=== PATIENT | female | born 1965 | race Caucasian/White ===

== ENCOUNTER 2019-03-07 15:32 | Emergency (ER) | payer BC, OTHER ==
[2019-03-07] MEDS ORDERED: Ketorolac 60 MG/2 ML SDV IM ONE (17:15)
[2019-03-07] MEDS ORDERED: methylPREDNISolone Sodium Succinate 125 MG/2 ML SDV IM ONE (17:15)
--- NOTE | 2019-03-07 17:18 | EDM.PDOC ---
ED HPI GENERAL MEDICAL PROBLEM - General Chief Complaint: Upper Extremity Injury/Pain Stated Complaint: SHARP PAIN IN LFT ARM Time Seen by Provider: 03/07/19 17:10 Source of Information: Reports: Patient History Limitations: Reports: No Limitations - History of Present Illness INITIAL COMMENTS - FREE TEXT/NARRATIVE: HISTORY AND PHYSICAL: History of present illness: Patient is a 53-year-old female who presents to the emergency room with complaints of left arm pain. She states yesterday she noticed some pain to the left bicep tricep area which felt like a muscle cramp. She states she would palpate the area and it felt firm to touch. Intermittently she would get pain that would go from the left sternocleidal mastoid area down her arm and caused some numbness and tingling to her fingertips. She denies any injury, trauma or falls. Denies any previous history of neck or back pain/injury. Her skin is intact without any erythema, soft tissue swelling or pain. Besides the bicep cramping and intermittent tingling to her fingers she offers no other systemic complaints. Neurologically intact. Review of systems: As per history of present illness and below otherwise all systems reviewed and negative. Past medical history: As per history of present illness and as reviewed below otherwise noncontributory. Surgical history: As per history of present illness and as reviewed below otherwise noncontributory. Social history: See social history for further information Family history: As per history of present illness and as reviewed below otherwise noncontributory. Physical exam: General: Well-developed and well-nourished 53-year-old female. Alert and oriented. Nontoxic appearing and in no acute distress. HEENT: Atraumatic, normocephalic, pupils equal and reactive bilaterally, negative for conjunctival pallor or scleral icterus, mucous membranes moist, TMs normal bilaterally, throat clear, neck supple, nontender, trachea midline. No drooling or trismus noted. No meningeal signs. No hot potato voice noted. Lungs: Clear to auscultation, breath sounds equal bilaterally, chest nontender. Heart: S1S2, regular rate and rhythm without overt murmur Abdomen: Soft, nondistended, nontender. Skin: Intact, warm, dry. No lesions or rashes noted. Extremities: Atraumatic, moves all extremities per self without difficulty or deficits, strong radial pulse. Cap refill less than 3 seconds. Skin intact. Full ROM of head/neck, left shoulder, elbow, and wrist. Neurovascular unremarkable. Neuro: Awake, alert, oriented. Cranial nerves II through XII unremarkable. Cerebellum unremarkable. Motor and sensory unremarkable throughout. Exam nonfocal. Notes: Physical examination is within normal limits. It sounds like she may have some form of nerve impingement versus muscle cramping. She states that she has not done any vigorous or strenuous activity out of normal. We did discuss the need for follow-up with her primary care provider as imaging may be warranted at some point, likely MRI. Medication and supportive care measures were reviewed and discussed. Voices understanding and is agreeable to plan of care. Denies any further questions or concerns at this time. Diagnostics: None Therapeutics: Solu-Medrol Prescription: Diclofenac, Medrol Dosepak Impression: Muscular strain vs nerve impingement Plan: 1. Take the medications as directed. 2. Gentle heat and stretching 3. Follow up with your primary care provider as we discussed. Return to the ED as needed and as discussed. Definitive disposition and diagnosis as appropriate pending reevaluation and review of above. Duration: Day(s): left Pain Score (Numeric/FACES): 5 - Related Data Allergies Allergy/AdvReac Type Severity Reaction Status Date / Time Sulfa (Sulfonamide AdvReac Vomiting Verified 04/06/16 14:55 Antibiotics) Home Meds: Home Meds ClonazePAM [KlonoPIN] 1 tab PO BID 04/06/16 [History] Rosuvastatin Calcium [Crestor] 04/06/16 [History] methIMAzole [Methimazole] 1 tab PO DAILY 04/06/16 [History] Cyclobenzaprine [Flexeril] 10 mg PO TID PRN #21 tab 03/07/19 [Rx] Diclofenac Sodium [Voltaren] 75 mg PO BIDMEALS PRN #30 tab.cr 03/07/19 [Rx] methylPREDNISolone [Medrol] 1 dose PO DAILY 6 Days #1 dospk 03/07/19 [Rx] Past Medical History HEENT History: Reports: Impaired Vision Cardiovascular History: Reports: High Cholesterol Psychiatric History: Reports: None Endocrine/Metabolic History: Reports: Other (See Below) Other Endocrine/Metabolic History: thyroid problem? - Infectious Disease History Infectious Disease History: Reports: None - Past Surgical History GI Surgical History: Reports: Other (See Below) Other GI Surgeries/Procedures: splenectomy Social & Family History - Family History Family Medical History: Noncontributory Cardiac: Reports: CAD - Tobacco Use Smoking Status *Q: Current Every Day Smoker Years of Tobacco use: 30 Packs/Tins Daily: 1 - Recreational Drug Use Recreational Drug Use: No Review of Systems - Review of Systems Review Of Systems: Comprehensive ROS is negative, except as noted in HPI. ED EXAM, GENERAL - Physical Exam Exam: See Below (See dictation) Course - Vital Signs Last Recorded V/S: Last Vital Signs Temp 96.8 F 03/07/19 17:02 Pulse 72 03/07/19 17:02 Resp 18 03/07/19 17:02 BP 121/60 03/07/19 17:02 Pulse Ox 95 03/07/19 17:02 - Orders/Labs/Meds Meds: Medications Discontinued Medications Generic Name Dose Route Start Last Admin Trade Name Freq PRN Reason Stop Dose Admin Ketorolac Tromethamine 60 mg 03/07/19 17:15 Toradol IM 03/07/19 17:16 ONETIME ONE Methylprednisolone Sodium Succinate 125 mg 03/07/19 17:15 Solu-Medrol IM 03/07/19 17:16 ONETIME ONE Departure - Departure Time of Disposition: 17:17 Disposition: Home, Self-Care 01 Clinical Impression: Muscle strain - Discharge Information Prescriptions: Cyclobenzaprine [Flexeril] 10 mg PO TID PRN #21 tab PRN Reason: Muscle Spasm methylPREDNISolone [Medrol] 1 dose PO DAILY 6 Days #1 dospk Referrals: PCP,Unknown [Primary Care Provider] - Forms: ED Department Discharge Additional Instructions: The following information is given to patients seen in the emergency department who are being discharged to home. This information is to outline your options for follow-up care. We provide all patients seen in our emergency department with a follow-up referral. The need for follow-up, as well as the timing and circumstances, are variable depending upon the specifics of your emergency department visit. If you don't have a primary care physician on staff, we will provide you with a referral. We always advise you to contact your personal physician following an emergency department visit to inform them of the circumstance of the visit and for follow-up with them and/or the need for any referrals to a consulting specialist. The emergency department will also refer you to a specialist when appropriate. This referral assures that you have the opportunity for follow-up care with a specialist. All of these measure are taken in an effort to provide you with optimal care, which includes your follow-up. Under all circumstances we always encourage you to contact your private physician who remains a resource for coordinating your care. When calling for follow-up care, please make the office aware that this follow-up is from your recent emergency room visit. If for any reason you are refused follow-up, please contact the [facility] Emergency Department at and asked to speak to the emergency department charge nurse. [facility] [address] [place] [id number] [id number] 1. Take the medications as directed. 2. Gentle heat and stretching 3. Follow up with your primary care provider as we discussed. Return to the ED as needed and as discussed.
[2019-03-07 18:14] VITALS: BP 153/73; PULSE 64
== END 2019-03-07 18:12 | disposition home or self-care (01) ==
LOC: MW.ED 15:32
DX: S46.912A Strain of unspecified muscle, fascia and tendon at shoulder and upper arm level, left arm, initial encounter (principal); F17.210 Nicotine dependence, cigarettes, uncomplicated; Z88.2 Allergy status to sulfonamides; Z79.899 Other long term (current) drug therapy; X58.XXXA Exposure to other specified factors, initial encounter
CPT/HCPCS: 96372; 99283; J1885; J2930

== ENCOUNTER 2021-04-04 10:06 | Emergency (ER) | payer BC ==
--- NOTE | 2021-04-04 10:17 | EDM.PDOC ---
ED HPI GENERAL MEDICAL PROBLEM - General Chief Complaint: Respiratory Problem Stated Complaint: FEVER/COUGH Time Seen by Provider: 04/04/21 10:13 Source of Information: Reports: Patient History Limitations: Reports: No Limitations - History of Present Illness INITIAL COMMENTS - FREE TEXT/NARRATIVE: HISTORY AND PHYSICAL: History of present illness: The patient is a 55-year-old female who presents to the emergency department with complaints of a that started on , , and chest "burning" along with a dry cough and itchy ears that started on 04/02/2021. The patient states that she has an intermittent headache. She does have appetite loss but no nausea and vomiting. Patient did have dysuria yesterday but after taking some fluids the dysuria vanished. The patient reports that she has had chills and sweats for the duration mostly at night. The patient is vaccinated for COVID-19 however its been over 6 months. Review of systems: As per history of present illness and below otherwise all systems reviewed and negative. Past medical history: As per history of present illness and as reviewed below otherwise noncontributory. Surgical history: As per history of present illness and as reviewed below otherwise noncontributory. Social history: See social history for further information Family history: As per history of present illness and as reviewed below otherwise noncontributory. Physical exam: General: Well developed and well nourished. Alert and orientated x 3. Nontoxic in appearance and in no acute distress. Vital signs are stable and have been reviewed by me. Nursing notes were reviewed. HEENT: Atraumatic, normocephalic, pupils equal and reactive bilaterally, negative for conjunctival pallor or scleral icterus, mucous membranes moist, TMs normal bilaterally, throat clear, neck supple, nontender, trachea midline. No drooling or trismus noted. No meningeal signs. No hot potato voice noted. Lungs: Clear to auscultation bilaterally. No wheezes, rales, or rhonchi. Chest nontender. Normal work of breathing, no accessory muscles used. Heart: S1S2, regular rate and rhythm without overt murmur, gallops, or rubs. No JVD. No peripheral edema Abdomen: Soft, nondistended, nontender. Normoactive bowel sounds. Negative for masses or costovertebral tenderness. Skin: Intact, warm, dry. No lesions or rashes noted. Hematologic: No petechiae or purpra. Mucosa appropriate color and normal nail bed color and refill. Extremities: Atraumatic, moves all extremities per self without difficulty or deficits, negative for cords or calf pain. Neurovascular unremarkable. Neuro: Awake, alert, oriented. Cranial nerves II through XII unremarkable. Cerebellum unremarkable. Motor and sensory unremarkable throughout. Exam nonfocal. Psychiatric: Mood and affect are appropriate. Normal thought process. Answering questions appropriately. Notes: *This patient was seen and evaluated during the 2019 SARS-CoV-2 novel coronavirus pandemic period. Community viral transmission is ongoing at time of this encounter and the emergency department is operating under pandemic response procedures. As stated above the patient is a 55-year-old female who presents to the emergency department with complaints of a sore throat, chest burning, dry cough, headache, and loss of appetite. The patient has had Covid in the past and is Covid vaccinated. We will do a generalized work-up to include a COVID-19/flu swab. I will treat the patient with IV fluids and Toradol. The patient is agreeable with this plan. The patient feels much better after her fluids and Toradol. The patient CBC is unremarkable. The patient's chemistry panel is remarkable for a slightly elevated glucose at 121. The patient's urinalysis is negative. The patient's influenza a and B are negative. The patient's COVID-19 swab was negative. I informed the patient of her test results and that her diagnosis is bronchitis. This is most likely viral in nature and as such she does not need an antibiotic. Robitussin did not help her so she could take Mucinex [id number] for her cough. I have prescribed Fenesin with codeine 10 mils every 6 hours as needed for cough. I have told the patient to take this only when she really needs it. Patient verbalized understanding stating she did not really want to suppress her cough if she did not have to. I gave the patient de tailed instructions on when she would need to return to the emergency department. I wrote the patient a note to be off work and suggested that she follow-up with her primary care on Tuesday. Patient was agreeable with this discharge plan. I have talked with the patient about today's findings, in addition to providing specific details for plan of care. Reassessment at the time of disposition dem onstrates that the patient is in no acute distress. The patient is stable for discharge, counseling was provided and we discussed in great detail signs and symptoms that would prompt them to return to the Emergency Department. Medication, follow up and supportive care measures were reviewed and discussed. Voices understanding and is agreeable to plan of care. Denies any further questions or concerns at this time. Diagnostics: CBC, CMP, chest x-ray, Covid/flu swab Therapeutics: Fluids, Toradol Prescription: Guaifenesin and codeine 15 mL every 6 hours as needed for cough Impression: Bronchitis Plan: 1. You were evaluated today on an emergent basis. Your complaints of sore throat, chest burning, dry cough was evaluated with blood work, chest x-ray, and COVID-19/flu swab. Your chest x-ray was negative as was your blood work. Your urinalysis was also negative. Your Covid and flu swab are negative. You did not have a bacterial infection. You have a viral bronchitis which is just treated with the symptoms. You do not need an antibiotic nor do you need steroids. You can treat your cough with [id number] Mucinex as Robitussin did not help you. I have prescribed Guaifenesin and codeine 15 mL every 6 hours as needed for cough for which you were given a paper prescription.. Please only use this when needed. As we talked about this is viral and 1 will run its course. It can last anywhere from 2 to 3 weeks. I will write you another note to be off work until Tuesday and I would suggest on Tuesday to call for follow-up appointment with your primary care provider if you require more time off from work. If you become short of breath or start wheezing please return to the emergency department or follow-up with your primary care provider. 2. You can alternate Tylenol and ibuprofen as needed for pain and fever management. 3. We encourage you to follow up with your primary care provider and/or recommended specialist in the next few days for re-evaluation and further care/management. 4. If your symptoms should worsen, new symptoms develop or any of the signs and symptoms we discussed should arise please return to the emergency room or call 911 (if needed). Definitive disposition and diagnosis as appropriate pending reevaluation and review of above. Back Pain Score (Numeric/FACES): 4 - Related Data Allergies Allergy/AdvReac Type Severity Reaction Status Date / Time Sulfa (Sulfonamide AdvReac Vomiting Verified 04/06/16 14:55 Antibiotics) Home Meds: Home Meds ClonazePAM [KlonoPIN] 1 tab PO BID 04/06/16 [History] Rosuvastatin Calcium [Crestor] 04/06/16 [History] methIMAzole [Methimazole] 1 tab PO DAILY 04/06/16 [History] Codeine Phosphate/Guaifenesin [Guaifenesin AC Cough Syrup] 15 ml PO Q6HR PRN 14 Days #400 liquid 04/04/21 [Rx] Past Medical History HEENT History: Reports: Impaired Vision Cardiovascular History: Reports: High Cholesterol Psychiatric History: Reports: None Endocrine/Metabolic History: Reports: Other (See Below) Other Endocrine/Metabolic History: thyroid problem? - Infectious Disease History Infectious Disease History: Reports: None - Past Surgical History GI Surgical History: Reports: Other (See Below) Other GI Surgeries/Procedures: splenectomy Social & Family History - Family History Family Medical History: No Pertinent Family History Cardiac: Reports: CAD ED ROS GENERAL - Review of Systems Review Of Systems: Comprehensive ROS is negative, except as noted in HPI. ED EXAM, GENERAL - Physical Exam Exam: See Below (See dictation) Course - Vital Signs Last Recorded V/S: Last Vital Signs Temp 98.6 F 04/04/21 10:13 Pulse 78 04/04/21 10:57 Resp 20 04/04/21 10:13 BP 107/71 04/04/21 10:57 Pulse Ox 95 04/04/21 10:13 - Orders/Labs/Meds Orders: Active Orders 24 hr Category Date Time Status Saline Lock Insert [OM.PC] Stat Oth 04/04/21 10:31 Ordered Labs: Laboratory Tests 04/04/21 04/04/21 04/04/21 Range/Units 10:10 10:20 10:20 WBC 7.62 (4.0-11.0) K/uL RBC 4.61 (4.30-5.90) M/uL Hgb 15.3 (12.0-16.0) g/dL Hct 44.8 (36.0-46.0) % MCV 97.2 (80.0-98.0) fL MCH 33.2 H (27.0-32.0) pg MCHC 34.2 (31.0-37.0) g/dL RDW Std Deviation 49.9 (28.0-62.0) fl RDW Coeff of [place]ing[place] 14 (11.0-15.0) % Plt Count 389 (150-400) K/uL MPV 12.10 H (7.40-12.00) fL Neut % (Auto) 61.9 (48.0-80.0) % Lymph % (Auto) 29.9 (16.0-40.0) % [place] % (Auto) 6.7 (0.0-15.0) % Eos % (Auto) 1.0 (0.0-7.0) % Baso % (Auto) 0.5 (0.0-1.5) % Neut # (Auto) 4.7 (1.4-5.7) K/uL Lymph # (Auto) 2.3 (0.6-2.4) K/uL [place] # (Auto) 0.5 (0.0-0.8) K/uL Eos # (Auto) 0.1 (0.0-0.7) K/uL Baso # (Auto) 0.0 (0.0-0.1) K/uL Nucleated RBC % 0.0 /100WBC Nucleated RBCs # 0 K/uL Sodium 141 (136-145) mmol/L Potassium 4.1 (3.5-5.1) mmol/L Chloride 103 (98-107) mmol/L Carbon Dioxide 29.1 (21.0-32.0) mmol/L BUN 11 (7.0-18.0) mg/dL Creatinine 1.1 H (0.6-1.0) mg/dL Est Cr Clr Drug Dosing 53.46 mL/min Estimated GFR (MDRD) 51.4 ml/min Glucose 120 H (74-106) mg/dL Calcium 9.6 (8.5-10.1) mg/dL Total Bilirubin 0.3 (0.2-1.0) mg/dL AST 18 (15-37) IU/L ALT 25 (14-63) IU/L Alkaline Phosphatase 84 (46-116) U/L Total Protein 8.3 H (6.4-8.2) g/dL Albumin 4.1 (3.4-5.0) g/dL Globulin 4.2 H (2.6-4.0) g/dL Albumin/Globulin Ratio 1.0 (0.9-1.6) Urine Color Urine Appearance Urine pH (5.0-8.0) Ur Specific [place] (1.001-1.035) Urine Protein (NEGATIVE) mg/dL Urine Glucose (UA) (NEGATIVE) mg/dL Urine Ketones (NEGATIVE) mg/dL Urine Occult Blood (NEGATIVE) Urine Nitrite (NEGATIVE) Urine Bilirubin (NEGATIVE) Urine Urobilinogen (<2.0) EU/dL Ur Leukocyte Esterase (NEGATIVE) Influenza Type A RNA NEGATIVE (NEGATIVE) Influenza Type B RNA NEGATIVE (NEGATIVE) SARS-CoV-2 RNA (NUNU) NEGATIVE (NEGATIVE) 04/04/21 Range/Units 10:40 WBC (4.0-11.0) K/uL RBC (4.30-5.90) M/uL Hgb (12.0-16.0) g/dL Hct (36.0-46.0) % MCV (80.0-98.0) fL MCH (27.0-32.0) pg MCHC (31.0-37.0) g/dL RDW Std Deviation (28.0-62.0) fl RDW Coeff of [place] (11.0-15.0) % Plt Count (150-400) K/uL MPV (7.40-12.00) fL Neut % (Auto) (48.0-80.0) % Lymph % (Auto) (16.0-40.0) % [place] % (Auto) (0.0-15.0) % Eos % (Auto) (0.0-7.0) % Baso % (Auto) (0.0-1.5) % Neut # (Auto) (1.4-5.7) K/uL Lymph # (Auto) (0.6-2.4) K/uL [place] # (Auto) (0.0-0.8) K/uL Eos # (Auto) (0.0-0.7) K/uL Baso # (Auto) (0.0-0.1) K/uL Nucleated RBC % /100WBC Nucleated RBCs # K/uL Sodium (136-145) mmol/L Potassium (3.5-5.1) mmol/L Chloride (98-107) mmol/L Carbon Dioxide (21.0-32.0) mmol/L BUN (7.0-18.0) mg/dL Creatinine (0.6-1.0) mg/dL Est Cr Clr Drug Dosing mL/min Estimated GFR (MDRD) ml/min Glucose (74-106) mg/dL Calcium (8.5-10.1) mg/dL Total Bilirubin (0.2-1.0) mg/dL AST (15-37) IU/L ALT (14-63) IU/L Alkaline Phosphatase (46-116) U/L Total Protein (6.4-8.2) g/dL Albumin (3.4-5.0) g/dL Globulin (2.6-4.0) g/dL Albumin/Globulin Ratio (0.9-1.6) Urine Color YELLOW Urine Appearance CLEAR Urine pH 7.0 (5.0-8.0) Ur Specific [place] 1.010 (1.001-1.035) Urine Protein NEGATIVE (NEGATIVE) mg/dL Urine Glucose (UA) NEGATIVE (NEGATIVE) mg/dL Urine Ketones NEGATIVE (NEGATIVE) mg/dL Urine Occult Blood NEGATIVE (NEGATIVE) Urine Nitrite NEGATIVE (NEGATIVE) Urine Bilirubin NEGATIVE (NEGATIVE) Urine Urobilinogen 0.2 (<2.0) EU/dL Ur Leukocyte Esterase NEGATIVE (NEGATIVE) Influenza Type A RNA (NEGATIVE) Influenza Type B RNA (NEGATIVE) SARS-CoV-2 RNA (NUNU) (NEGATIVE) Meds: Medications Discontinued Medications Generic Name Dose Route Start Last Admin Trade Name Freq PRN Reason Stop Dose Admin Sodium Chloride 1,000 mls @ 999 mls/hr 04/04/21 10:32 04/04/21 10:52 Normal Saline IV 04/04/21 11:32 999 mls/hr .BOLUS ONE Administration Ketorolac Tromethamine 30 mg 04/04/21 10:32 04/04/21 10:52 Ketorolac 30 Mg/Ml Sdv IVPUSH 04/04/21 10:33 30 mg ONETIME ONE Administration Sodium Chloride 10 ml 04/04/21 10:32 04/04/21 10:54 Sodium Chloride 0.9% 10 Ml Syringe FLUSH 10 ml ASDIRECTED PRN Administration Keep Vein Open Sodium Chloride 2.5 ml 04/04/21 10:32 04/04/21 10:54 Sodium Chloride 0.9% 2.5 Ml Syringe FLUSH 2.5 ml ASDIRECTED PRN Administration Keep Vein Open Departure - Departure Time of Disposition: 11:46 Disposition: Home, Self-Care 01 Condition: Good Clinical Impression: Bronchitis - Discharge Information *PRESCRIPTION DRUG MONITORING PROGRAM REVIEWED*: Not Applicable *COPY OF PRESCRIPTION DRUG MONITORING REPORT IN PATIENT PADMINI: Not Applicable Prescriptions: Codeine Phosphate/Guaifenesin [Guaifenesin AC Cough Syrup] 15 ml PO Q6HR PRN 14 Days #400 liquid PRN Reason: Cough Instructions: Acute Bronchitis, Adult, [id number] Referrals: Annette Jovel MESS ATTENDANT [Primary Care Provider] - Forms: ED Department Discharge Additional Instructions: The following information is given to patients seen in the emergency department who are being discharged to home. This information is to outline your options for follow-up care. We provide all patients seen in our emergency department with a follow-up referral. The need for follow-up, as well as the timing and circumstances, are variable depending upon the specifics of your emergency department visit. If you don't have a primary care physician on staff, we will provide you with a referral. We always advise you to contact your personal physician following an emergency department visit to inform them of the circumstance of the visit and for follow-up with them and/or the need for any referrals to a consulting specialist. The emergency department will also refer you to a specialist when appropriate. This referral assures that you have the opportunity for follow-up care with a specialist. All of these measure are taken in an effort to provide you with optimal care, which includes your follow-up. Under all circumstances we always encourage you to contact your private physician who remains a resource for coordinating your care. When calling for follow-up care, please make the office aware that this follow-up is from your recent emergency room visit. If for any reason you are refused follow-up, please contact the [facility] Emergency Department at and asked to speak to the emergency department charge nurse. [facility] - Primary Care [address] [place] [id number] [address] [place] [address] Plan: 1. You were evaluated today on an emergent basis. Your complaints of sore throat, chest burning, dry cough was evaluated with blood work, chest x-ray, and COVID-19/flu swab. Your chest x-ray was negative as was your blood work. Your urinalysis was also negative. Your Covid and flu swab are negative. You did not have a bacterial infection. You have a viral bronchitis which is just treated with the symptoms. You do not need an antibiotic nor do you need steroids. You can treat your cough with [id number] Mucinex as Robitussin did not help you. I have prescribed Guaifenesin and codeine 15 mL every 6 hours as needed for cough for which you were given a paper prescription.. Please only use this when needed. As we talked about this is viral and 1 will run its course. It can last anywhere from 2 to 3 weeks. I will write you another note to be off work until Tuesday and I would suggest on Tuesday to call for follow-up appointment with your primary care provider if you require more time off from work. If you become short of breath or start wheezing please return to the emergency department or follow-up with your primary care provider. 2. You can alternate Tylenol and ibuprofen as needed for pain and fever management. 3. We encourage you to follow up with your primary care provider and/or recommended specialist in the next few days for re-evaluation and further care/management. 4. If your symptoms should worsen, new symptoms develop or any of the signs and symptoms we discussed should arise please return to the emergency room or call 911 (if needed). Sepsis Event Note (ED) - Focused Exam Vital Signs: Vital Signs Temp Pulse Resp BP Pulse Ox 04/04/21 10:57 78 107/71 04/04/21 10:13 98.6 F 88 20 120/76 95 - My Orders Last 24 Hours: My Active Orders 04/04/21 10:31 Saline Lock Insert [OM.PC] Stat - Assessment/Plan Last 24 Hours: My Active Orders 04/04/21 10:31 Saline Lock Insert [OM.PC] Stat
[2021-04-04] MEDS ORDERED: Ketorolac 30 MG/ML SDV IVPUSH ONE (10:32)
[2021-04-04] MEDS ORDERED: Sodium Chloride 0.9% 1,000 ML IV ONE (10:32)
[2021-04-04] MEDS ORDERED: Sodium Chloride 0.9% 10 ML Syringe FLUSH PRN (10:32)
[2021-04-04] MEDS ORDERED: Sodium Chloride 0.9% 2.5 ML Syringe FLUSH PRN (10:32)
[2021-04-04 10:52] LABS: CORONAVIRUS COVID-19 NAA NEGATIVE (NEGATIVE); INFLUENZA A NAA NEGATIVE (NEGATIVE); INFLUENZA B NAA NEGATIVE (NEGATIVE)
[2021-04-04 10:55] LABS: CARBON DIOXIDE,CO2 29.1 mmol/L (21.0-32.0); POTASSIUM,K 4.1 mmol/L (3.5-5.1)
[2021-04-04 11:00] VITALS: BP 107/71; PULSE 78
--- NOTE | 2021-04-04 11:08 | CR ---
INDICATION: Cough burning TECHNIQUE: Single view chest. FINDINGS: The lungs are clear. The heart, mediastinum and pulmonary vessels are of normal size. There is no evidence of pleural disease. Left upper quadrant clips. IMPRESSION: Negative chest. Dictated by Cha Lopez MD @ 04/04/2021 11:06:24 AM (Electronically Signed)
--- NOTE | 2021-04-04 11:09 | PCM.EKG ---
#1 Interpretation EKG Date: 04/04/21 Time: 11:08 EKG Interpretation Comments: Normal sinus rhythm rate of 75 slightly short AR interval of 107 intervals otherwise unremarkable normal axis and no acute ischemia
== END 2021-04-04 11:57 | disposition home or self-care (01) ==
LOC: MW.ED 10:06
DX: J40 Bronchitis, not specified as acute or chronic (principal); E78.00 Pure hypercholesterolemia, unspecified; Z79.899 Other long term (current) drug therapy; Z20.822 Contact with and (suspected) exposure to COVID-19; Z88.2 Allergy status to sulfonamides
CPT/HCPCS: 0240U; 36415; 71045; 80053; 81003; 85025; 93005; 96374; 99284; J1885; J7030

== ENCOUNTER 2022-02-09 09:18 | Day surgery (SDC) | payer BC ==
[~2022-02-09 09:18] MED LIST: Lactated Ringers 1,000 ML IV SCH; Propofol 200 MG/20 ML SDV ONE; Sodium Chloride 0.9% 10 ML Syringe FLUSH PRN; Sodium Chloride 0.9% 2.5 ML Syringe FLUSH PRN; Sodium Chloride 0.9% 20 ML SDV IV PRN
[2022-02-09] MEDS ORDERED: Lidocaine 2% 5 ML SDV ONE (11:01)
[2022-02-09 13:08] VITALS: BP 97/54; PULSE 56
== END 2022-02-09 12:37 | disposition home or self-care (01) ==
LOC: MW.SDS 09:18
PROVIDERS: ATTEND Surgery
DX: D12.5 Benign neoplasm of sigmoid colon (principal); K21.9 Gastro-esophageal reflux disease without esophagitis; K44.9 Diaphragmatic hernia without obstruction or gangrene; I10 Essential (primary) hypertension; F41.9 Anxiety disorder, unspecified; E55.9 Vitamin D deficiency, unspecified; F17.210 Nicotine dependence, cigarettes, uncomplicated; Z88.8 Allergy status to other drugs, medicaments and biological substances; Z79.899 Other long term (current) drug therapy; Z98.890 Other specified postprocedural states; Z90.49 Acquired absence of other specified parts of digestive tract; Z88.2 Allergy status to sulfonamides
CPT/HCPCS: 43239; 45380; 45385; 81025; J2704; J7120; 00813

== ENCOUNTER 2022-03-05 17:14 | Emergency (ER) | payer BC ==
[2022-03-05 18:21] VITALS: PULSE 73
[2022-03-05] MEDS ORDERED: Albuterol/Ipratropium 3.0-0.5 MG/3 ML Neb Soln NEB ONE (18:56)
[2022-03-05] MEDS ORDERED: Alum Hydro/Mag Hydro/Simeth XS 15 ML, Lidocaine 2% 5 ML PO ONE ×2 (18:56)
[2022-03-05 21:15] LABS: CARBON DIOXIDE,CO2 28.5 mmol/L (21.0-32.0); POTASSIUM,K 3.7 mmol/L (3.5-5.1)
[2022-03-05] MEDS ORDERED: predniSONE 20 MG Tab PO ONE (21:36)
[2022-03-05 22:06] VITALS: BP 99/62
== END 2022-03-05 21:54 | disposition home or self-care (01) ==
LOC: MW.ED 17:14
DX: J40 Bronchitis, not specified as acute or chronic (principal); Z88.2 Allergy status to sulfonamides; Z91.048 Other nonmedicinal substance allergy status; Z88.8 Allergy status to other drugs, medicaments and biological substances; Z79.899 Other long term (current) drug therapy
CPT/HCPCS: 36415; 71045; 80053; 83735; 83880; 84443; 84484; 85025; 85379; 93005; 99285; A9270; J7620-GY